=== PATIENT | female | born 1965 | race Caucasian/White ===

== ENCOUNTER 2018-02-23 11:18 | Day surgery (SDC) | payer MEDICAID ==
[~2018-02-23 11:18] MED LIST: Lidocaine 1% with EPINEPHrine 1:100,000 50 ML MDV ONE
[2018-02-23] MEDS ORDERED: fentaNYL 100 MCG/2 ML SDV ONE (11:51)
[2018-02-23] MEDS ORDERED: Propofol 200 MG/20 ML SDV ONE ×2 (11:51→13:36)
[2018-02-23] MEDS ORDERED: Midazolam 1 MG/ML 2 ML SDV ONE (11:51)
[2018-02-23] MEDS ORDERED: Sodium Chloride 0.9% 1,000 ML IV SCH (12:00)
[2018-02-23] MEDS ORDERED: Lidocaine 1% 50 ML MDV ONE (13:09)
--- NOTE | 2018-02-23 14:11 | PCM.PRNOTE ---
- Free Text/Narrative Note: PREOPERATIVE DIAGNOSES: 1. Thickened endometrium 2. Bartholin cyst gland left side POSTOPERATIVE DIAGNOSES: 1. same PROCEDURE PERFORMED: 1. Dilatation and curettage. 2. Hysteroscopy. 3. Left Bartholin cyst marsupialization GROSS FINDINGS: Uterus was anteverted, The cervix without any lesions. Right sided submucosal/intramural fibroid at the cornual os. Lef 6 cm Bartholin cyst gland PROCEDURE: The patient was taken to the operating room where she was properly prepped and draped in sterile manner under general anesthesia. After bimanual examination, the cervix was exposed with a weighted vaginal speculum and the anterior lip of the cervix grasped with a vulsellum tenaculum. The uterus was sounded to a depth of 11 cm. The endocervical canal was then progressively dilated with Hanks and Hegar dilators to a #10 Hegar. The hysteroscope was then introduced into the uterine cavity using sterile saline solution as a distending media and with attached video camera. The endometrial cavity was distended with fluids and the cavity visualized. A 1-2 cm fibroid located on the right cornual region was seen and due to location was unable to be removed, a biopsy was taken.. The coronal areas were visualized bilaterally with corresponding tubal ostia. There were no direct intraluminal lesions seen. The patient tolerated the procedure well. Several pictures were taken of the endometrial cavity and the hysteroscope removed from the cavity. A large sharp curette was then used to obtain a moderate amount of tissue, which was the sent to pathologist for analysis. The instrument was removed from the vaginal vault. LEft Marsupialization was performed and edges approximated with 3-0 vicryl, due to small cervical tear from tenaculum a figure of 8 2-0 vidryl was used to repair the anterior lip of cervix. The patient was sent to recovery area in satisfactory postoperative condition.
[2018-02-23] MEDS ORDERED: Acetaminophen/oxyCODONE 325-5 MG Tab PO PRN (14:57)
[2018-02-23 15:40] VITALS: BP 130/93
== END 2018-02-23 15:48 | disposition home or self-care (01) ==
LOC: JP.SDS 11:18
PROVIDERS: ATTEND Obstetrics & Gynecology
DX: D25.9 Leiomyoma of uterus, unspecified (principal); N75.0 Cyst of Bartholin's gland; N95.0 Postmenopausal bleeding; F17.210 Nicotine dependence, cigarettes, uncomplicated; E66.3 Overweight; Z79.899 Other long term (current) drug therapy; Z88.0 Allergy status to penicillin; Z88.2 Allergy status to sulfonamides; Z88.1 Allergy status to other antibiotic agents; Z98.84 Bariatric surgery status
CPT/HCPCS: 36415; 56440; 58558; 86850; 86900; 86901; 88304; 88305; A9270; J2250; J2704; J3010; J7030